=== PATIENT | female | born 1995 | race Two or more races ===

== ENCOUNTER 2024-12-09 06:10 | Inpatient (IN) | payer MEDICAID, SELFPAY ==
[2024-12-09] VITALS (40 sets, daily range): BP systolic 97–136; BP diastolic 48–81; PULSE 73–116; RESP 12–23; TEMP 36.7–37.2; O2SAT 95–100; BMI 33.0
--- NOTE | 2024-12-09 06:50 | XR_ITS ---
Examination: Complete OB ultrasound greater than 14 weeks Date and time of exam: December 09, 2024 0738 hours INDICATIONS: Patient in active labor unknown weight Findings: Viable intrauterine single fetus with single amniotic sac presentation Vertex. Composite estimated gestational age based on BPD, head circumference, abdominal circumference, femur length is 40 weeks 6 days Estimated weight 4817 g. Survey of intracranial anatomy, spinal anatomy, abdominal anatomy, four-chamber heart performed with no abnormalities identified. Impression: Viable intrauterine gestation vertex presentation Estimated weight 4817 g.
[2024-12-09 07:17] LABS: Syphilis Nonreactive (Nonreactive)
[2024-12-09 07:17] LABS: Basophils % (Auto) 0 % (0-2.5); Eosinophils # (Auto) 0.1 Thou/mm3 (0.0-0.5); Eosinophils % (Auto) 1 % (0-10); Hemoglobin 11.2 g/dL (12.0-16.0); Immature Granulocytes % (Auto) 1 % (0-0); Immature Granulocytes Auto 0.08 Thou/mm3 (0.00-0.00); Lymphocytes # (Auto) 2.7 Thou/mm3 (1.0-4.8); Lymphocytes % (Auto) 30 % (10-50); Mean Corpuscular Hemoglobin 29.9 pg (25.0-35.0); Mean Corpuscular Volume 86 fL (80-100); Monocytes # (Auto) 0.7 Thou/mm3 (0.0-0.8); Monocytes % (Auto) 8 % (0-12); Neutrophils # (Auto) 5.6 Thou/mm3 (1.8-7.7); Neutrophils % (Auto) 61 % (37-80); Nucleated Red Blood Cell % 0 /100 WBC (0); Platelet Count 244 Thou/mm3 (140-440); RDW Standard Deviation 43.3 fL (36.4-46.3); Red Blood Count 3.74 Miln/mm3 (4.00-5.20); White Blood Count 9.2 Thou/mm3 (3.6-11.0)
--- NOTE | 2024-12-09 08:21 | PD.LDHP ---
Documentation for date of: 12/09/24 OB Labor/Induct. HPI History of Present Illness : 1 Para: 0 Date of last menstrual period: 03/09/24 USHA: 03/09/25 Gestational Age (weeks): 39 Gestational Age (days): 2 Gestational age based on last menstrual period: 39 History of present illness: H and P dictated [id number] History of Present Abnormal ultrasound findings: US today shows EFW 10.6 lbs or 4817g. Labs Labs: Positive: Rubella Titre, Negative: RPR, Hepatitis B, HIV, Chlamydia, Gonorrhea and Group Beta Strep and Unknown: Herpes Type 1, Herpes Type 2 and Covid-19 Meds Home Medications and Allergies Allergies Allergy/AdvReac Type Severity Reaction Status Date / Time NKA* Allergy Uncoded 09/04/13 22:30 OB Exam Physical Exam Vital signs: Temp Pulse Resp BP 98.2 F 84 18 122/72 12/09/24 07:21 12/09/24 08:11 12/09/24 07:21 12/09/24 08:11 OB Results Labs 12/09/24 06:27 Labs: Short CBC 12/09/24 Range/Units 06:27 WBC 9.2 (3.6-11.0) Thou/mm3 Hgb 11.2 L (12.0-16.0) g/dL Hct 32.0 L (36.0-46.0) % Plt Count 244 (140-440) Thou/mm3 Impressions Impression: IUP 39w2d by best dates. Macrosomia Delivery Informed consent obtained: pt made aware of the risks, complications, alternatives and benefits of the proposed procedure and she agrees.
[2024-12-09] MEDS: RINGERS LACTATED 1000 ML 1,000 ML 100 ML IV ×2 (09:22→22:44)
[2024-12-09] MEDS: ceFAZolin/D5W 2 GM IV 2 GM/100 ML BAG IV (10:16)
[2024-12-09] MEDS: METOCLOPRAMIDE INJ 5 MG/ML VIAL 2 ML 10 MG IVP (10:17)
[2024-12-09] MEDS: FAMOTIDINE INJ 10 MG/ML VIAL 2 ML 20 MG IV (10:17)
--- NOTE | 2024-12-09 10:32 | ESDS_ITS ---
DS: Providers Provider Date of admission: 12/09/24 06:10 Primary care physician: Ambrose Mendez MD Admitting Provider: Macario Dey MD Attending Provider on Admission: Macario Dey MD Attending Provider on DC: Macario Dey MD Discharging Provider: Macario Dey MD DS: Diagnosis Problem List Completed Was Problem List Reviewed/Reconciled?: Yes Summary/Hosp Course Brief History: H and P dictated [id number] Peripartum Data Delivery Method: Low Transverse Procedures: Procedures Operation Date: 12/09/24 10:45 Actual Procedure Side Surgeon p in OB Macario Dey MD Time Spent with Patient Time attestation: Total time spent providing and/or coordinating discharge services: Exam Vital Signs Temp Pulse Resp BP Pulse Ox 98.3 F 87 18 121/75 98 12/09/24 09:28 12/09/24 09:20 12/09/24 09:28 12/09/24 09:20 12/09/24 10:20 Discharge Plan Plan Patient Disposition: HOME (Self Care) Patient condition on transfer: Stable Prescriptions/Referrals Prescriptions/Med Rec: New hydrocodone-acetaminophen 5-325 mg tablet 1 tab PO Q6H MDD 4 PRN (Reason: pain) Qty: 20 0RF ibuprofen 600 mg tablet 600 mg PO Q6H PRN (Reason: pain) Qty: 30 0RF Referrals: Ambrose Mendez MD [Primary Care Provider] - Patient/Caregiver Discharge Instructions Discharge Activity: activity as tolerated Other Discharge Activity Instructions:: Follow up office 1 week. Print Language: Croatian Stand Alone Forms: Heydi Award Info., Patient Portal Info Letter Planned Discharge Date 12/11/24
--- NOTE | 2024-12-09 11:37 | OBDSUM_ITS ---
Data ([facility]ollum) Data : 1 Delivery Data (M[facility]ollum) Labor Data Initiation of labor: Induction ROM date: 12/09/24 ROM time: 10:59 Amniotic membrane rupture type: Artificial Amniotic fluid description: Clear Delivery Data EDC: 12/14/24 EDC calculated by:: LMP/early US confirmation Onset of labor date: 12/09/24 Onset of labor time: 10:59 Complete dilation date: 12/09/24 Complete dilation time: 10:59 delivery date: 12/09/24 [place] delivery time: 10:59 Gestational age (weeks): 39 Gestational age (days): 2 Placenta delivery date: 12/09/24 Placenta delivery time: 11:00 Stage 1 total time: Labor - Stage 1 Duration 0 minutes Delivered by: geiling Delivery nurse: YEIMI Walker [place] nurse: Radha Die Sinking Machine Operator at delivery: No Support person(s) at delivery: FOB Other staff at delivery: MATEUS Ryan, METAL PATTERNMAKER CERVG, TECH Delivery Method Delivery method: Low Transverse Presentation: Vertex position: OA Anesthesia Type Anesthesia Type: Spinal Placenta Placenta delivery description: Manual Removal Cord blood sent to lab: Yes cord blood collection: Cord Blood Type EBL Estimated blood loss (ml): 700 Umbilical Cord cord description: 3 Vessels Additional Procedures None Complications Complications: Uterine atony Data (Mccollum) [place] Data order: 1 's gender: Female Identification band number: [id number] weight (gms): 8 lb 12.743 oz Weight (pounds): 8 lbs and 12.7 ozs 1 minute: 9 5 minutes: 9
--- NOTE | 2024-12-09 12:26 | ESOP_ITS ---
RE: BASIM ALMEIDA : 1995 DATE OF OPERATION: 12/09/2024 PREOPERATIVE DIAGNOSES: 1. Intrauterine at 39 weeks and 2 days. 2. Macrosomia. 3. Declines induction of labor or trial of labor. POSTOPERATIVE DIAGNOSES: 1. Intrauterine at 39 weeks and 2 days. 2. Macrosomia 3. Declines induction of labor or trial of labor. PROCEDURE PERFORMED: Primary low transverse section via Pfannenstiel skin incision. SURGEON: Macario Dey DO DATA MANAGEMENT ANALYST: PRASHANT Seymour ANESTHESIA: Spinal. ANESTHESIOLOGIST: Earnestine Crenshaw CRNA ESTIMATED BLOOD LOSS: 700 mL. COMPLICATIONS: Uterine atony responding to Methergine, Cytotec, and Pitocin. FINDINGS: 1. Live female infant. 2. Cephalic presentation. 3. Clear amniotic fluid. 4. Apgars 9 and 9. 5. Weight 8 pounds 13 ounces. 6. Placenta removed complete and intact. 7. Endometriosis, stage I : bilateral ovaries and uterosacral ligaments. 8. Posterior fundal subserosal leiomyoma measuring 2 x 2 cm. the uterus. DESCRIPTION OF PROCEDURE: After proper informed consent was obtained, the patient was made aware of the risks, complications, alternatives, and benefits of the proposed procedure. She was taken to the operating room where she underwent induction of spinal anesthesia. She was placed in the dorsal supine position with leftward tilt. She was prepped and draped in the usual sterile fashion. A timeout was performed. Pfannenstiel skin incision was made with a scalpel carried through to the underlying layer of fascia with the Bovie. The fascia was nicked in the midline. Incision was extended bilaterally with the Bovie. The inferior aspect of the fascial incision was grasped with Mary clamps and elevated. The underlying rectus muscles were dissected off with the Bovie. The rectus muscles were in the midline. The peritoneum was identified between 2 Sharri clamps and incised sharply with the Metzenbaum scissors. The incision was extended superiorly and inferiorly with good visualization of the bladder. Bladder blade was then inserted. Vesicouterine peritoneum was incised transversely and a bladder flap was created digitally. The bladder blade was reinserted. Low uterine segment was incised in a transverse fashion with the scalpel. The incision was extended bilaterally and digitally. The infant's head was delivered. The meconium was suctioned with bulb suction. Shoulders and body were delivered atraumatically. The cord was clamped and cut. The infant was sent off with the pediatric staff. Cord blood and gases were sent. Placenta was then removed manually. The uterus was exteriorized and cleared of all clots and debris. The uterine incision was repaired with #1-0 chromic catgut suture in a running locking fashion. A second layer of the same suture was used to imbricate the first layer and obtained excellent hemostasis. At this time, the uterus had responded to uterotonics, and the vesicouterine peritoneum was closed with 2-0 chromic catgut suture in a running fashion. The uterus was firm. The gutters were cleared of all clots and debris, and the uterus was returned to the abdomen. The gutters were cleared of all clots and debris, and the peritoneum was closed with 0 chromic catgut suture in a running fashion. The muscle was closed with 0 chromic catgut suture in a running fashion. The fascia was closed with 0 Vicryl beginning at each angle and ending in the center in a running fashion. Subcutaneous tissue was irrigated with normal saline solution and found to be hemostatic. It was closed with 2-0 chromic catgut suture in a running fashion. The skin was closed with 4-0 Monocryl. A Dermabond Prineo dressing was applied. A sterile pressure dressing was applied. She tolerated the procedure well. Counts were correct. I discussed with the patient and her , the nature of her condition and intraoperative findings and expectation for recovery. All questions were answered. DT: 11:34:35 TT: 12:21:00 Ref: [id number] - TID: [id number] MTDD
[2024-12-09] MEDS: KETOROLAC INJ 30 MG/ML VIAL IVP ×2 (13:26→22:43)
[2024-12-09] MEDS: OXYTOCIN in NS 20 units 20 UNIT/1,000 ML BAG 125 UNIT IV (16:20)
[2024-12-09 17:08] LABS: Basophils % (Auto) 0 % (0-2.5); Eosinophils % (Auto) 0 % (0-10); Hematocrit 34.4 % (36.0-46.0); Hemoglobin 11.6 g/dL (12.0-16.0); Immature Granulocytes % (Auto) 1 % (0-0); Immature Granulocytes Auto 0.09 Thou/mm3 (0.00-0.00); Lymphocytes # (Auto) 1.1 Thou/mm3 (1.0-4.8); Lymphocytes % (Auto) 7 % (10-50); Mean Corpuscular HGB Conc 33.7 g/dl (31.0-37.0); Mean Corpuscular Hemoglobin 29.4 pg (25.0-35.0); Mean Corpuscular Volume 87 fL (80-100); Monocytes # (Auto) 0.2 Thou/mm3 (0.0-0.8); Monocytes % (Auto) 1 % (0-12); Neutrophils # (Auto) 14.4 Thou/mm3 (1.8-7.7); Neutrophils % (Auto) 91 % (37-80); Nucleated Red Blood Cell % 0 /100 WBC (0); Platelet Count 220 Thou/mm3 (140-440); RDW Standard Deviation 42.8 fL (36.4-46.3); Red Blood Count 3.95 Miln/mm3 (4.00-5.20); White Blood Count 15.8 Thou/mm3 (3.6-11.0)
[2024-12-10 00:01] VITALS: BP 112/71; PULSE 64; RESP 18; TEMP 36.7; O2SAT 97
[2024-12-10 03:42] VITALS: BP 122/72; PULSE 59; RESP 18; TEMP 36.6; O2SAT 96
[2024-12-10] MEDS: KETOROLAC INJ 30 MG/ML VIAL IVP (06:07)
[2024-12-10 08:00] VITALS: BP 114/76; PULSE 63; RESP 18; TEMP 36.6; O2SAT 98
--- NOTE | 2024-12-10 08:06 | ESPR_ITS ---
Subjective Subjective Interval history: Postop day #1 patient denies any primary complaint. She is voiding and ambulating and tolerating a regular diet. She is passing flatus. She denies any chest pain palpitation shortness of breath or lower extremity pain. Exam Vital Signs Temp Pulse Resp BP Pulse Ox O2 Del Method 97.9 F 59 L 18 122/72 96 Room Air 12/10/24 03:42 12/10/24 03:42 12/10/24 03:42 12/10/24 03:42 12/10/24 03:42 12/10/24 03:42 Routine Respiratory Exam Comments: Clear to auscultation bilaterally Routine Cardiovascular Exam Comments: Regular rate and rhythm Routine Abdominal Exam Comments: Dressing dry and intact. Nondistended. Fundus is firm. Routine Extremities Exam Comments: Nontender Objective Labs 12/09/24 16:35 Labs: Laboratory Results - last 24 hr 12/09/24 12/09/24 06:27 16:35 WBC 15.8 H D RBC 3.95 L Hgb 11.6 L Hct 34.4 L MCV 87 MCH 29.4 MCHC 33.7 RDW Std Deviation 42.8 Plt Count 220 Neut % (Auto) 91 H Lymph % (Auto) 7 L [place] % (Auto) 1 Eos % (Auto) 0 Baso % (Auto) 0 Neut # (Auto) 14.4 H Lymph # (Auto) 1.1 [place] # (Auto) 0.2 Eos # (Auto) 0.0 Baso # (Auto) 0.0 Immature Gran # (Auto) 0.09 H Absolute Nucleated RBC 0.00 Immature Gran % 1 H Nucleated RBC % 0 Blood Type O Positive Antibody Screen NEGATIVE Assessment & Plan Problem List (1) delivery delivered: Status: Acute Assessment and plan: Postop day #1 Status post delivery for macrosomia Remove dressing, DC IV, support, encourage ambulation, discharge home tomorrow. Time Spent With Patient Time: Total time spent is greater than 50% in coordination of care (as documented) at patient's floor/unit and/or counseling patient:
[2024-12-10] MEDS: Milk Of Magnesia Susp 30 ML UDC PO (08:54)
[2024-12-10] MEDS: SIMETHICONE 80 MG CHEW PO ×2 (08:55→14:21)
[2024-12-10] MEDS: DOCUSATE SOD 100 MG CAPSULE PO (08:55)
[2024-12-10] MEDS: ENOXAPARIN SOD INJ 40 MG/0.4 ML SYRINGE SC (08:55)
[2024-12-10] MEDS: HYDROcodone/APAP 5/325 TABLET 1 TAB PO ×2 (11:40→19:43)
[2024-12-10 11:45] VITALS: BP 114/74; PULSE 75; RESP 16; TEMP 36.7; O2SAT 97
[2024-12-10] MEDS: IBUPROFEN TAB 400 MG TABLET 800 MG PO (14:21)
[2024-12-10 19:46] VITALS: BP 110/70; PULSE 81; RESP 16; TEMP 36.4; O2SAT 98
[2024-12-11] MEDS: HYDROcodone/APAP 5/325 TABLET 1 TAB PO ×3 (01:08→11:16)
[2024-12-11 03:37] VITALS: BP 105/63; PULSE 68; RESP 14; TEMP 36.2; O2SAT 97
[2024-12-11] MEDS: IBUPROFEN TAB 400 MG TABLET 800 MG PO (03:53)
[2024-12-11 08:30] VITALS: BP 114/73; PULSE 73; RESP 18; TEMP 36.8; O2SAT 98
--- NOTE | 2024-12-11 08:36 | PD.LDPPPRG ---
Subjective Subjective Interval history: Delivery type: Patient doing well this morning. No acute complaints. Ambulating, tolerating p.o. and voiding without difficulty. HTN/Pre-Eclampsia screen: No chest pain, shortness of breath, headache, visual changes, epigastric or right upper quadrant pain. Breast-feeding, lochia diminishing. Bowel: Flatus+/ BM+ Exam Vital Signs Temp Pulse Resp BP Pulse Ox O2 Del Method 97.2 F 68 14 105/63 97 Room Air 12/11/24 03:37 12/11/24 03:37 12/11/24 03:37 12/11/24 03:37 12/11/24 03:37 12/11/24 03:37 Constitutional Constitutional: no acute distress Routine HEENT Exam Head: Present normocephalic and atraumatic Eye: Present EOMI and PERRL ENT: Present mucous membranes moist Routine Neck Exam Neck: Present supple and trachea midline Routine Respiratory Exam Respiratory: Present chest non-tender, lungs clear, normal breath sounds and no resp distress Routine Cardiovascular Exam Cardiovascular: Present RRR Routine Abdominal Exam Abdominal: Present soft and normoactive bowel sounds Routine Extremities Exam Extremities: Present full ROM Routine Skin Exam Skin: Present intact, dry and warm Routine Neurological Exam Neurological: Present alert, oriented X3 and CN II-XII intact Routine Psychiatric Exam Psychiatric: Present normal affect and normal thought process Objective Labs 12/09/24 16:35 Assessment & Plan Problem List (1) delivery delivered: Status: Acute Assessment and plan: PPD/POD#2 1. Continue routine care 2. Transition to PO meds. 3. Encourage to ambulate/ breast-feed 4. Anticipate discharge home today. Time Spent With Patient Time: Total time spent is greater than 50% in coordination of care (as documented) at patient's floor/unit and/or counseling patient:
--- NOTE | 2024-12-11 08:37 | PD.LDDS ---
DS: Providers Provider Date of admission: 12/09/24 06:10 Primary care physician: Ambrose Mendez MD Admitting Provider: Macario Dey MD Attending Provider on Admission: Titus Virk MD Consults: 12/09/24 12:34 Referral Routine Comment: Attending Provider on DC: Titus Virk MD Discharging Provider: Titus Virk MD DS: Diagnosis Discharge Diagnosis (1) delivery delivered: Status: Acute (2) Endometriosis: Status: Acute (3) Subserous leiomyoma of uterus: Status: Acute (4) Macrosomia: Status: Acute Problem List Completed Was Problem List Reviewed/Reconciled?: Yes Summary/Hosp Course Brief History: H and P dictated [id number] Peripartum Data Delivery Method: Low Transverse Procedures: Procedures Operation Date: 12/09/24 10:45 Actual Procedure Side Surgeon p in OB Macario Dey MD Time Spent with Patient Time attestation: Total time spent providing and/or coordinating discharge services: Exam Vital Signs Temp Pulse Resp BP Pulse Ox O2 Del Method 97.2 F 68 14 105/63 97 Room Air 12/11/24 03:37 12/11/24 03:37 12/11/24 03:37 12/11/24 03:37 12/11/24 03:37 12/11/24 03:37 Discharge Plan Plan Patient Disposition: HOME (Self Care) Patient condition on transfer: Stable Prescriptions/Referrals Prescriptions/Med Rec: New hydrocodone-acetaminophen 5-325 mg tablet 1 tab PO Q6H MDD 4 PRN (Reason: pain) Qty: 20 0RF ibuprofen 600 mg tablet 600 mg PO Q6H PRN (Reason: pain) Qty: 30 0RF Referrals: Ambrose Mendez MD [Primary Care Provider] - Macario Dey MD [Physician] - Patient/Caregiver Discharge Instructions Discharge Activity: activity as tolerated Other Discharge Activity Instructions:: Follow up office 1 week. Education Materials: Breast Care After , After a , C Section Dc, Feel Healthy After Print Language: Beninese Stand Alone Forms: Heydi Award Info., Patient Portal Info Letter, DC from Surgery Discharge Order Discharge Orders: Discharge (Routine); Ordered 12/11/24 Ordered By: Titus Virk Planned Discharge Date 12/11/24
[2024-12-11] MEDS: DOCUSATE SOD 100 MG CAPSULE PO (08:57)
[2024-12-11] MEDS: ENOXAPARIN SOD INJ 40 MG/0.4 ML SYRINGE SC (08:57)
--- NOTE | 2024-12-12 07:31 | ESHP_ITS ---
RE: BASIM ALMEIDA : 1995 DATE OF ADMISSION: 12/09/2024 HISTORY OF PRESENT ILLNESS: This is a 29-year-old 1, para 0 with intrauterine at 39 weeks and 2 days who presents to labor and delivery for induction of labor for macrosomia. The patient's ultrasound have shown growth at the 99th percentile. The patient's care was complicated by a echocardiogram showing an apical mid muscular ventricular septal defect. Maternal medicine has authorized delivery at [facility] with a non-urgent echo recommendation . The patient reports occasional contractions. She denies any leaking or bleeding. She reports normal movement. ALLERGIES: NO KNOWN DRUG ALLERGIES. MEDICATIONS: vitamin 1 p.o. daily. SOCIAL HISTORY: She denies any alcohol, drug use, or smoking. PAST MEDICAL HISTORY: Iron deficiency anemia. FAMILY HISTORY: Denies. PAST SURGICAL HISTORY: Denies. REVIEW OF SYSTEMS: She denies any headache, change in vision, or right upper quadrant pain. She denies any chest pain, palpitations, shortness of breath, or lower extremity pain. PHYSICAL EXAMINATION: Vital Signs: Blood pressure is 128/74, heart rate 88, respirations 18, temperature 98.6. HEENT: Oropharynx and sclerae are clear. Lungs: Clear to auscultation bilaterally. Heart: Regular rate and rhythm. Abdomen: Gravid, term size with estimated weight. Extremities: Nontender. Skin: No gross rashes or lesions. Neurologic: No focal deficit. ASSESSMENT AND PLAN: Intrarenal at 39 weeks and 2 days, induction of labor for macrosomia. Anticipate spontaneous vaginal delivery. Informed consent was obtained. The patient was made aware of the risks, complications, alternatives, and benefits of the proposed procedure and she agrees. She is aware of the risk of operative vaginal delivery and delivery and agrees with these modes of delivery if indicated. DT: ::28 TT: 07:58:00 Ref: [id number] - TID: [id number]
== END 2024-12-11 13:50 | disposition home or self-care (01) | DRG 540 ==
LOC: S4SX 11:14 → S4NX 12:16
PROVIDERS: Admitting Provider Specialist; PCP Family Medicine; Visit Provider Obstetrics & Gynecology
PROC: 10D00Z1 Extraction of Products of Conception, Low, Open Approach (ICD-10-PCS; CPT 59514; principal; 2024-12-09 10:30)
DX: O36.63X0 Maternal care for excessive fetal growth, third trimester, not applicable or unspecified (principal); Z3A.39 39 weeks gestation of pregnancy; Z37.0 Single live birth; O77.0 Labor and delivery complicated by meconium in amniotic fluid; O62.2 Other uterine inertia; O34.13 Maternal care for benign tumor of corpus uteri, third trimester; D25.2 Subserosal leiomyoma of uterus; N80.9 Endometriosis, unspecified; Q21.0 Ventricular septal defect
CPT/HCPCS: 36415; 76805; 85025; 86780; 86850; 86900; 86901; A4649; J0689; J1100; J1650; J1885; J2210; J2274; J2371; J2590; J2765; J3010; J3490; J7120; S0191; A9270; J2270

== ENCOUNTER 2025-06-01 13:33 | Outpatient (AMB) | payer MEDICAID, SELFPAY ==
[2025-06-01 13:58] VITALS: BP 110/74; PULSE 75; RESP 16; TEMP 36.6; O2SAT 98; BMI 29.2
--- NOTE | 2025-06-01 13:58 | PD.RESCLINIC ---
Vital Signs 06/01/25 13:58 Height 1.68 m Height Method Stated Weight 82.27 kg Weight Measurement Method Standing Scale BMI 29.2 BP 110/74 Blood Pressure Source Automatic Cuff Blood Pressure Location Right Upper Arm Position Sitting Respiration 16 Pulse 75 Pulse Source Monitor Temp 97.9 F Temp Source Temporal Artery Scan Pulse Oximetry (%) 98 Oxygen Delivery Method Room Air Allergies/Meds Allergies & Medications Allergies NKA* Allergy (Uncoded 06/01/25 13:59) MA Intake Visit Data Collection New Patient or Established: Established Patient (seen at [facility] within 3 years) Seen by Clinical Staff ONLY (RN/MA): No Pain Present Currently: No Pain scale:: 0 Pain Scale Used: [place]ley/Numerical Medical Records Custodian Required: No PCP or OBGYN visit in last 3 months: No Hx Now: No Do You Feel Safe at Home: Yes Authorities Contacted: N/A Smoking Status Smoking Status: Never smoker Immunization / Flu Flu Vaccine in the Last 12 Months: No Flu Vaccine Exclusion Criteria: Already Received Past Medical History Past Medical History NEUROLOGIC: Negative Neurological Disorders or Seizures CARDIAC: Negative Cardiac Disorders or Congestive Heart Failure RESPIRATORY: Negative Chronic Obstructive Pulmonary Disease (COPD) or Asthma GASTROINTESTINAL: Negative Gastrointestinal Disorders GENITOURINARY: Negative Genitourinary Disorders or Renal Disease REPRODUCTIVE: Negative Previous Pregnancies ENDOCRINE: Negative Endocrine Disorders, Diabetes Mellitus Type 1 or Diabetes Mellitus Type 2 HEMATOLOGIC: Negative Blood Disorders or Anemia OTHER HISTORY: Negative Autoimmune Disease, Falls, Blood Transfusions, Anesthesia Reactions or Cancer Family History FAMILY HISTORY: Negative Family Psychiatric Problems, Family Respiratory Disorders, Family Cardiac Disorders, Family Gastrointestinal Problems, Family Cancer, Family Surgery or Family Anesthesia Reaction Social History SMOKING STATUS: Smoking status: Never smoker ALCOHOL: Alcohol Intake: Never HOUSING: Housing: Apartment LIVES WITH: Lives With: Significant Other Patient Portal Questionaires PHQ-9 PHQ-2 Over the last 2 weeks, how often have you been bothered by any of the following problems? 1. Little interest or pleasure in doing things: not at all 2. Feeling down, depressed, or hopeless: not at all Total score: 0 Social History Living Situation History Housing: Apartment Tobacco History Smoking Status: Never smoker Alcohol History Alcohol Intake: Never Domestic Abuse History Do You Feel Safe at Home: Yes Review of Systems Report any current symptoms Only answer those that you have currently: Past Medical History Past Medical History Have you ever been diagnosed with any of the following: Neurological Problems Seizures: No Cardiology Problems Congestive Heart Failure: No Respiratory Problems Chronic Obstructive Pulmonary Disease (COPD): No Asthma: No Genital/Urinary Problems Renal Disease: No Reproductive Problems Previous Pregnancies: No Endocrine Problems Diabetes Mellitus Type 1: No Diabetes Mellitus Type 2: No Blood Problems Anemia: No Other Problems Autoimmune Disease: No Falls: No Blood Transfusions: No Anesthesia Reactions: No Cancer: No History of Present Illness HPI Narrative Patient presents for [employer] school physical. No complaints. Denies bodily pain, recent illness or fever/chills. Form filled out. Please see scanned in chart. Objective/Exam Narrative Physical exam: GENERAL: AOx3, no acute distress HEENT: mucous membranes moist, bilateral sclera anicteric CARDIOVASCULAR: regular rate and rhythm, S1/S2 present, no murmurs appreciated PULMONARY: clear to auscultation bilaterally, no rales/rhonchi/wheezes ABDOMINAL: soft, non-tender, non-distended, no rebound/guarding, bowel sounds present EXTREMITIES: no peripheral edema SKIN: warm and dry, intact, no rashes NEURO: CN II-XII grossly intact, no focal deficits, alert, following commands, patellar reflex and achilles reflex intact. Assessment & Plan Diagnosis / Problem List (1) Encounter for pre-employment examination: Status: Acute Assessment & Plan: Patient presents for [employer] school physical examination. Entirely benign, no pain on passive or active ROM of extremities or back. Reflexes intact. Plan: Paperwork filled out. Clear for school. Office Procedures [facility] Level of Care Nursing/Assessment Patient Status: Established Patient Nursing Assessment/Reassessment: Medication Reconciliation, Update PMH in EMR and Vital Signs Coordination of Care: Complex Care and Chronic Disease 1-5, Complex Care/Chronic Disease 5 or more, Consent,records obtained, informed consent, Lab and Imaging orders, Results/Orders obtained and Staff clarify orders Established Patient Charge Established Patient Point Assignment: 125 Established Patient Point Charge: Level 4 (120-155)
== END 2025-06-01 14:39 | disposition home or self-care (01) ==
LOC: HODAHC 13:33
PROVIDERS: Supervising Provider Internal Medicine
DX: Z02.0 Encounter for examination for admission to educational institution (principal)
CPT/HCPCS: 99214; G0463